=== PATIENT | female | born 2000 | race Caucasian/White ===

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

== ENCOUNTER 2024-10-23 10:24 | Outpatient (CLI) | payer OTHER, SELFPAY ==
--- NOTE | ~2024-10-23 | XR_ITS ---
Lumbosacral Spine: AP and lateral views Clinical History: Pain Findings: The normal lordotic curve is maintained. Suspected bilateral L5 pars interarticularis defec ts, without subluxation. The intervertebral disc spaces are preserved. The sacroiliac joints are no rmally outlined. Impression: Possible bilateral L5 pars interarticularis defects. No subluxation. Reviewed, dictated and finalized at [facility]. Impression: Possible bilateral L5 pars interarticularis defects. No subluxation.
--- NOTE | ~2024-10-23 | XR_ITS ---
Thoracic spine: Clinical Indication: Back pain AP and lateral views were performed. No fracture is seen. There is normal alignment of the vertebrae. The intervertebral disc spaces appe ar normal. Paravertebral soft tissues appear normal. Impression: No significant abnormalities noted. Reviewed, dictated and finalized at [facility]. Impression: No significant abnormalities noted.
--- NOTE | ~2024-10-23 | XR_ITS ---
Cervical Spine: AP, lateral, open-mouth views Clinical History: Pain Findings: The normal lordotic curve is maintained. The vertebral bodies and posterior elements appea r intact. The intervertebral disc spaces are well maintained. Pre-vertebral soft tissues are unremar kable. Impression: No significant abnormality is seen. Reviewed, dictated and finalized at [facility]. Impression: No significant abnormality is seen.
== END 2024-10-23 10:25 | disposition home or self-care (01) ==
DX: M54.6 Pain in thoracic spine (principal); M54.2 Cervicalgia
CPT/HCPCS: 72040; 72070; 72100

== ENCOUNTER 2024-11-06 01:04 | Day surgery (SDC) | payer OTHER, SELFPAY ==
[2024-11-02 13:41] VITALS: BMI 21.7
--- NOTE | 2024-11-02 13:53 | PC.NURSE ---
Report to the Outpatient Waiting Room, entrance under the green pavilion located off [facility], at time _1130_ on date _[id number]_. Planned Procedure Time: _130pm_.? Time changes happen often and if your time is changed the preop area will call you the afternoon before. - You and your visitor will be asked to self-screen and do not enter if you have any COVID symptoms. Please call surgeon if you need to reschedule. - A mask is optional within the hospital at this time. Patients may have clear liquids (water, carbonated beverages, clear teas, apple juice) until 3 hours prior to surgery with a maximum of 20 ounces. - No food from midnight until time of surgery and no smoking, or chewing tobacco (or any form of nicotine). No chewing gum, candy or mints. Take only the following medications with a SIP of water on the morning of surgery: __None DO NOT STOP ANY OF YOUR OTHER PRESCRIPTION MEDICATIONS PRIOR TO SURGERY EXCEPT THE FOLLOWING Hold all vitamins and supplements for 3 days per anesthesiologist. Medications to discontinue per physician Follow Dr Murali Munoz's instructions about Ibuprofen and Hydroxycloroquin. Date to take last xpag___[id number]___ Please no make-up, nail palauan, hairspray, perfume, deodorant, or body powder the day of surgery.? No jewelry (including any body piercings) or valuables the day of surgery, leave them at home.? Please take a shower or bath the night before, or the morning of, surgery with an antibacterial soap.? Wear comfortable, loose fitting clothing.? - Jewelry must be removed prior to entering the operating room.? Rings and piercings that are not removed may be cut off. - The hospital will not accept responsibility for valuables.? - Please leave all valuables, including medications, at home the day of surgery. If you are going home after surgery, a licensed furniture mover driver must drive you home.? - NO public transportation without another adult if you receive anesthesia. - We recommend that an adult stay with you for 24 hours following discharge. - We also recommend that you do not drive, make important decision, drink alcoholic beverages, or take any drugs that were not prescribed by your health care provider for at least 24 hours after your discharge time. Follow any additional instructions given to you from your surgeon. Telephone instructions given to __Sachi___and asked if any additional questions and then verbalized understanding. Patient advised to call surgeon office or pre surgery nurse liaison [phone] if any additional questions.
--- NOTE | 2024-11-03 07:29 | PM.IMHP ---
H&P: HPI History of Present Illness Date/Time: 11/03/24 07:29 Chief Complaint: Enlarged labia Narrative: This is a 24-year-old female 0 admitted for left labioplasty secondary to long enlarged labia. The patient has previously had a right labial repair for discomfort. She works out suffers from lupus. In light of this elongated labia she will undergo reduction labioplasty. She understands that this is not a cosmetic procedure min to simply improve the discomfort from enlarged labia. Risk of infection and pelvic pain and pain with intercourse later were reviewed. She had all questions answered and asked to proceed Review of Systems Review of Systems: CONSTITUTIONAL: Denies body aches, fever, chills, or sweats. EYES: Denies visual changes, redness, or discharge. ENT: Denies rhinorrhea, or otalgia. + Congestion, sore throat CARDIOVASCULAR: Denies chest pain, palpitations, or edema. RESPIRATORY: + Cough, chest tightness GASTROINTESTINAL: Denies abdominal pain, nausea, vomiting, or diarrhea. GENITOURINARY: Denies dysuria or hematuria. SKIN: Denies rash, itching, or wounds. MUSCULOSKELETAL: Denies back pain, joint pain, or myalgia. NEUROLOGIC: Denies headache, numbness, tingling, or weakness. PSYCH: Denies depression or anxiety. [facility] Past Medical History Medical History Eosinophilic esophagitis Asthma Surgical History Surgical History History of endoscopy Social History Social History Smoking status: Never smoker Living arrangements: with family Spiritual care concerns: No Meds Home Medications and Allergies Home Medications ?Medication ?Instructions ?Recorded ?Confirmed ?Type cholecalciferol (vitamin D3) 125 5,000 unit PO DAILY 11/02/24 11/02/24 History mcg (5,000 unit) tablet (Vitamin D3) cyanocobalamin (vitamin B-12) 5,000 mcg sublingual DAILY 11/02/24 11/02/24 History 5,000 mcg sublingual tablet (Vitamin B-12) fluticasone propionate 50 1 spray intranasal HS 11/02/24 11/02/24 History mcg/actuation nasal spray,suspension hydroxychloroquine 200 mg tablet 200 mg PO HS 11/02/24 11/02/24 History ibuprofen 200 mg tablet (Advil) 400 mg PO Q6H PRN pain 11/02/24 11/02/24 History magnesium 200 mg tablet 200 mg PO DAILY 11/02/24 11/02/24 History magnesium glycinate 100 mg (as 400 mg PO DAILY 11/02/24 11/02/24 History glycinate) tablet (Mag Glycinate) riboflavin (vitamin B2) 50 mg 400 mg PO DAILY 11/02/24 11/02/24 History tablet (Vitamin B-2) Allergies Allergy/AdvReac Type Severity Reaction Status Date / Time No Known Allergies Allergy Verified 11/02/24 13:33 Exam Const: General: cooperative, healthy appearing and comfortable Nutritional Appearance: average body habitus Orientation/consciousness: oriented to person, oriented to place and oriented to time HENMT: Head: normal to inspection Resp: Effort & Inspection: normal respiratory effort Cardio: Rate: regular rate Rhythm: regular rhythm Heart sounds: S1 normal heart sound present and S2 normal heart sound present GI: Inspection: normal to inspection : External Female Exam: normal external appearance (Left labia enlarged and elongated) Speculum Exam - Cervix: normal appearance of the cervix Bimanual exam- vagina & uterus: normal bimanual exam Assessment and Plan Assessment and plan (1) Labia enlarged: Code(s): N90.60 - Unspecified hypertrophy of vulva Status: Acute Plan Proceed with reduction left labioplasty
[2024-11-06] VITALS (9 sets, daily range): BP systolic 102–129; BP diastolic 61–92; PULSE 69–151; RESP 12–24; TEMP 36.1–37.2; O2SAT 94–100
--- OUTSIDE RECORDS SUMMARY | 2024-11-06 01:07 | XMS_ITS | Clinical Summary ---
Author Organization [facility] Address [address] Hoffn: Epic Prelude ADT ALEX OLIVO [address] Care Team Providers Care Drug Safety Specialist Name Role Phone Unavailable Primary Care Provider Unavailabl e Medications pantoprazole (PROTONIX) 20 mg Tablet, Delayed Release (E.C.) Take 1 Tablet (20 mg) by mouth daily. 90 Tablet 07/20/2022 3:45 PM CONDENSER SETTER 07/19/2022 Active pantoprazole (PROTONIX) 20 mg Tablet, Delayed Release (E.C.) Take 1 Tablet (20 mg) by mouth daily. 90 Tablet 12/25/2023 3:04 PM CDT 12/23/2023 Active Social History Tobacco Use Types Packs/Day Years Used Date Smoking Tobacco: Never Assessed Comments Unknown Sex and Gender Information Value Date Recorded Sex Assigned at Not on file Legal Sex Female 3:27 PM CDT Gender Identity Not on file Sexual Orientation Not on file Plan of Treatment Health Maintenance Due Date Last Done Comments CHLAMYDIA SCREENING (ANNUAL) 11-24 YEARS 2012 HPV VACCINES (1 - 3-dose series) 2016 DTAP/TDAP/TD VACCINES (1 - Tdap) 2020 HEPATITIS B VACCINES (1 of 3 - 19+ 3-dose series) 07/04 CERVICAL CANCER SCREENING 2022 HPV/Cotest (21-29) 2022 PAP SMEAR 2022 INFLUENZA VACCINE (#1) 2024 Insurance RX [facility] [employer] [place] [employer] ([employer]) [facility]
--- OUTSIDE RECORDS SUMMARY | 2024-11-06 01:07 | XMS_ITS | Clinical Summary ---
Author Organization [facility] Address [address] [place] [address] Care Team Providers Care Hand Candy Molder Name Role Phone Sameera Ramos MD Primary Care Provider + Allergies Active Allergy Reactions Criticality Noted Date Comments Cat Dander Hives Medium 12/31/2017 Dog Dander Rash Medium 12/31/2017 Other Hives Medium 02/28/2018 [place], tree, ragweed, mold, horses Jkvswxpkrv-Kfmts-Exagz-Con g Rash Medium 11/11/2018 Medications fluticasone (FLONASE) 50 mcg/actuation nasal spray 8 Active azelastine (ASTELIN) 137 mcg (0.1 %) nasal spray 8 Active loratadine (CLARITIN ORAL) Take by mouth as needed. Active SUDAFED SINUS 12HR PRESSR-PAIN 220-120 mg tablet extended release 12 hr TAKE 1 TABLET BY MOUTH EVERY 12 HOURS NEEDED FOR CONGESTION 3 9 Active cetirizine (ZyrTEC) 10 mg tablet Take 10 mg by mouth daily Active omeprazole (PriLOSEC) 20 mg capsuleIndicatio ns:Eosinophilic esophagitis Take 1 capsule (20 mg total) by mouth daily 90 capsule 3 0 Active Active Problems Problem Noted Date Diagnosed Date Seasonal allergic rhinitis due to pollen 018 Seasonal allergic rhinitis due to fungal spores 04/08/2018 Allergic rhinitis due to animals 04/08/2018 Eosinophilic esophagitis 03/30/2018 Dysphagia 02/27/2018 Overview (02/27/2018): Added automatically from request for surgery [id number] Esophageal dysphagia 01/24/2018 Benign neoplasm of soft tissues 11/22/2016 Hypertrophy of vulva 03/26/2014 Resolved Problems Problem Noted Date Diagnosed Date Resolved Date Chronic GERD 01/24/2018 11/07/2018 Irritation of vulva 03/26/2014 02/28/20 18 Immunizations Immunization Administration Dates Next Due DTaP 11/26/2002, 2,2001,09/18 DTaP, Unspecified 09/16/2006 H1N1 Nasal 05/03/2009,04/05/2009 HPV9 12/14/2016,06/19/2016 Hep A, Unspecified 06/25/2012,05/23/2011 Hep B, Adolescent or Pediatric 07/23/2002,2001,2001 HiB 07/23/2002,2001,2001 IPV 01/15/2002,2001,2001 Influenza, Quadrivalent, Spl it, Preservative Free, Intramuscular 03/17/2019 Influenza, Unspecified 03/21/2009,05/22/2007,02/2007 MMR 07/23/2002 MMRV 09/06/2006 Meningococcal B, OMV (Bexsero) 12/18/2017 Meningococcal Conjugate (Menveo) 12/18/2017 Meningococcal MCV4P (Menactra) 09/02/2013 Pneumococcal Conjugate 7-Valent 07/23/19 03,01/15/2002,2001,09/18 Polio, Unspecified 09/06/2006 Tdap 06/25/2012 Varicella 07/23/2002 Surgical History Surgery Date Site/Laterality Comments VULVA SURGERY 05/11/2014 Right MOLE REMOVAL back of head UPPER GASTROINTESTINAL ENDOSCOPY 03/06/2018 Medical History Medical History Date Comments Esophageal dysphagia 01/24/2018 Dysphagia 02/27/2018 Added automatica lly from request for surgery [id number] Chronic GERD 01/24/2018 Irritation of vulva 03/26/2014 Eosinophilic esophagitis 03/30/2018 Allergic rhinitis Family History Medical History Relation Name Comments Allergic rhinitis Father Anesthesia problems Father Hypertension Maternal Grandmother Family history of hypertension - (Added by TW Conv) Allergic rhinitis Mother Relation Name Status Comments Father Alive Maternal Grandmother Mother Alive Social History Tobacco Use Types Packs/Day Years Used Date Smoking Tobacco: Never Smokeless Tobacco: Never Alcohol Use Standard Drinks/Week Comments Never 0 (1 standard drink = 0.6 oz pur e alcohol) AUDIT-C Answer Date Recorded Frequency of Alcohol Consumption Never 05/29/2019 Average Number of Drinks Not on file 019 Frequency of Binge Drinking Not on file 05/04 Comments Unknown Sex and Gender Information Value Date Recorded Sex Assigned at Not on file Legal Sex Female 11:08 AM MAIL CLERKS SUPERVISOR Gender Identity Not on file Sexual Orientation Not on file History Length Weight Head Circum Date/Time Gestation Age D/C Weight APGARs Delivery Method Feeding 2000 7#12oz, term, no complicatio ns. Solely breastfed for 24+ months Obstetrics History Last Filed Vital Signs Vital Sign Reading Time Taken Comments Blood Pressure 110/76 12/26/2020 9:32 AM CDT Pulse 72 12/26/2020 9:32 AM CDT Temperature 36.9 C (98.5 F) 07/27/2019 3:12 PM MAIL CLERKS SUPERVISOR Respiratory Rate 18 07/27/2019 3:12 PM MAIL CLERKS SUPERVISOR Oxygen Saturation 98% 06/12/2019 3:31 PM MAIL CLERKS SUPERVISOR Inhaled Oxygen Concentration - - Weight 68.9 kg (152 lb) 12/26/2020 9:32 AM CDT Height 162.6 cm (5' 4) 12/26/2020 9:32 AM CDT Body Mass Index 26.09 12/26/2020 9:32 AM CDT Plan of Treatment Not on file Insurance [facility] [employer] [facility] HMO [facility] [employer] [facility] Care Teams Hand Candy Molder Relationship Specialty Start Date End Date Sameera Ramos MD [address] [place] [address] PCP - General 11/22/16
--- OUTSIDE RECORDS SUMMARY | 2024-11-06 01:07 | XMS_ITS | Referral Summary ---
Author Organization [facility] Address [address] [place] [address] Care Team Providers Care Biomedical Engineering Director Name Role Phone Sameera Ramos MD Primary Care Provider + Allergies Active Allergy Reactions Criticality Noted Date Comments Cat Dander Hives Medium 12/31/2017 Dog Dander Rash Medium 12/31/2017 Other Hives Medium 02/28/2018 [place], tree, ragweed, mold, horses Dauryhkjzs-Ubpoj-Rkcka-Con g Rash Medium 11/11/2018 Medications fluticasone (FLONASE) [...] (02/27/2018): Added automatically from request for surgery [id number] Esophageal dysphagia 01/24/2018 Benign neoplasm of soft [...] Polio, Unspecified 09/06/2006 Tdap 06/25/2012 Varicella 07/23/2002 Social History Tobacco Use Types Packs/Day Years [...] on file Legal Sex Female 11:08 AM [employer] INTELLIGENCE SUPPORT Gender Identity Not on file Sexual Orientation Not on file Last Filed Vital Signs Vital Sign Reading Time Taken Comments Blood Pressure 110/76 12/26/2020 9:32 AM CDT Pulse 72 12/26/2020 9:32 AM CDT Temperature 36.9 C (98.5 F) 07/27/2019 3:12 PM GW[employer]TELL[employer] SUPPORT Respiratory Rate 18 07/27/2019 3:12 PM GW[employer] INTELLIGENCE SUPPORT Oxygen Saturation 98% 06/12/2019 3:31 PM GW[employer]TELL[employer] SUPPORT Inhaled Oxygen Concentration - - Weight 68.9 kg (152 lb) 12/26/2020 9:32 AM CDT Height 162.6 cm (5' 4) 12/26/2020 9:32 AM CDT Body Mass Index 26.09 12/26/2020 9:32 AM CDT Plan of Treatment Not on file Insurance [facility] [place] [address] [place] [address] HMO [facility] [address] Care Teams Biomedical Engineering Director Relationship Specialty Start Date End Date Sameera Ramos MD [address] [place] [address] PCP - General 11/22/16
--- NOTE | 2024-11-06 03:46 | WPDHPUPDATE1 ---
History and Physical Update Update Date/Time: 11/06/24 03:46 History and Physical has been reviewed, including an updated exam of the patient. There are NO changes in the patient's condition. Risks, benefits, and alternatives have been discussed and questions answered. Patient agrees to proceed with procedure.
[2024-11-06 11:59] LABS: BEDSIDEPREGUCG Negative (Negative)
[2024-11-06] MEDS: LACTATED RINGERS 1,000 ML 30 ML IV CONT ×2 (12:05→13:39)
[2024-11-06] MEDS: SCOPOLAMINE 1 MG PATCH 1 PATCH TRANSDERM (12:10)
--- NOTE | 2024-11-06 12:20 | WPDANESEPPF ---
Anes - Initial Pre Proc Eval Procedure: Operation Date: 11/06/24 13:30 Proposed Procedures p Left Labiaplasty - Niko Munoz MD Date/Time: 11/06/24 12:20 Surgeon: Niko Munoz MD Pre Op Diagnosis: pain, enlarged labia Patient Data Age: 24 Gender: F Height: 1.63 m Weight: 54.14 kg Last Vital Signs Temp 37.2 C 11/06/24 11:59 Pulse 80 11/06/24 11:59 Resp 16 11/06/24 11:59 BP 120/83 11/06/24 11:59 Pulse Ox 100 11/06/24 11:59 O2 Del Method Room Air 11/06/24 11:59 Allergies Allergy/AdvReac Type Severity Reaction Status Date / Time No Known Allergies Allergy Verified 11/02/24 13:33 Home Medications ?Medication ?Instructions ?Recorded ?Confirmed ?Type cholecalciferol (vitamin D3) 125 5,000 unit PO DAILY 11/02/24 11/06/24 History mcg (5,000 unit) tablet (Vitamin D3) cyanocobalamin (vitamin B-12) 5,000 mcg sublingual DAILY 11/02/24 11/06/24 History 5,000 mcg sublingual tablet (Vitamin B-12) fluticasone propionate 50 1 spray intranasal HS 11/02/24 11/06/24 History mcg/actuation nasal spray,suspension hydroxychloroquine 200 mg tablet 200 mg PO HS 11/02/24 11/06/24 History ibuprofen 200 mg tablet (Advil) 400 mg PO Q6H PRN pain 11/02/24 11/02/24 History magnesium 200 mg tablet 200 mg PO DAILY 11/02/24 11/06/24 History magnesium glycinate 100 mg (as 400 mg PO DAILY 11/02/24 11/06/24 History glycinate) tablet (Mag Glycinate) riboflavin (vitamin B2) 50 mg 400 mg PO DAILY 11/02/24 11/06/24 History tablet (Vitamin B-2) hydrocodone 5 mg-acetaminophen 325 1 tablet PO Q4H PRN pain #30 tabs 11/06/24 Rx mg tablet Laboratory Tests 11/06/24 11:58 POC Urine HCG, Qual Negative (Negative) Patient hx anesthesia problems: none Family hx anesthesia problems: none Results Review: All pre-operative results and documents have been reviewed as part of the pre-operative evaluation. [facility] Past Medical History Medical History (Updated 11/06/24 @ 12:21 by Niko Lamar MD) SLE (systemic lupus erythematosus) Eosinophilic esophagitis Asthma Surgical History Surgical History History of endoscopy Social History Social History Smoking status: Never smoker Living arrangements: with family Spiritual care concerns: No Anes - Eval Final PreProcedure Day of Procedure 11/06/24 12:20 Patient weight: normal Heart: regular rate and rhythm Lungs: clear to auscultation Airway: Mallampati scale class II Neurological: alert and oriented Last oral intake: >/= 8 hours ASA classification: II Emergent: no Anesthesia type and monitoring: general LMA and standard monitoring Results Review: All pre-operative results and documents have been reviewed as part of the pre-operative evaluation. Informed Consent: The patient's anesthetic plan and its attendant risks and benefits were discussed with the patient/family/POA. Questions were solicited and answers provided to the satisfaction of the patient/family/POA.
[2024-11-06] MEDS: ceFAZolin 2 GM/D5W 50 ML 2 GM/50 ML BAG IVPB (13:04)
--- NOTE | 2024-11-06 13:35 | W.PM.PROC2 ---
Procedure Note - Detailed Date of Procedure 11/06/24 Pre-op Diagnosis pain, enlarged labia Post-op Diagnosis Same Procedure Performed Left labial majora reduction Surgeon Niko Munoz MD Anesthesia General Indications 24-year-old female with a long gated labia on the left and previous right labioplasty elsewhere Findings Elongated left labia majora Description of Procedure Patient was prepped draped in the normal sterile fashion placed in dorsal position. Excellent general endotracheal anesthesia the left labia was grasped and incision made along the in linear fashion reducing the labia to the size of the opposite labia minora. This was closed with running 4-0 Monocryl blood loss was 5cc. The patient was awakened went recovery in satisfactory condition. All sponge, needle, instrument counts were correct. There were no immediate complications Estimated Blood Loss 5 Drains No Packing No Pathology Yes Complications No immediate complications Condition Stable Disposition PACU
[2024-11-06] MEDS: fentaNYL CITRATE INJ (*CRX) 100 MCG/2 ML VIAL 25 MCG IV PUSH ×5 (13:55→14:35)
[2024-11-06] MEDS: oxyCODONE (*CRX) 5 MG/5 ML ORAL SOLN IR PO (15:20)
== END 2024-11-06 15:50 | disposition home or self-care (01) ==
PROVIDERS: Visit Provider Obstetrics & Gynecology
PROC: (CPT 56620; principal; 2024-11-06 13:30)
DX: N90.60 Unspecified hypertrophy of vulva (principal)
CPT/HCPCS: 56620; A9270; J0690; J1100; J1200; J2003; J2004; J2250; J2405; J2704; J3010; J7120

== ENCOUNTER 2024-12-03 01:46 | Day surgery (SDC) | payer OTHER, SELFPAY ==
--- NOTE | 2024-11-30 14:18 | PC.NURSE ---
Report to the Outpatient Waiting Room, entrance under the green pavilion located off [facility], at time _0700_ on date _[id number]_. Planned Procedure Time: _0900_.? Time changes happen often and if your time is changed the preop area will call you the afternoon before. - You and your visitor will be asked to self-screen and do not enter if you have any COVID symptoms. Please call surgeon if you need to reschedule. - A mask is optional within the hospital at this time. Patients may have clear liquids (water, carbonated beverages, clear teas, apple juice) until 3 hours prior to surgery with a maximum of 20 ounces. - No food from midnight until time of surgery and no smoking, or chewing tobacco (or any form of nicotine). No chewing gum, candy or mints. Take only the following medications with a SIP of water on the morning of surgery: ___None___ DO NOT STOP ANY OF YOUR OTHER PRESCRIPTION MEDICATIONS PRIOR TO SURGERY EXCEPT THE FOLLOWING Hold all vitamins and supplements for 3 days per anesthesiologist. Stop now. Medications to discontinue per physician Date to take last dose Please no make-up, nail vatican citizen, hairspray, perfume, deodorant, or body powder the day of surgery.? No jewelry (including any body piercings) or valuables the day of surgery, leave them at home.? Please take a shower or bath the night before, or the morning of, surgery with an antibacterial soap.? Wear comfortable, loose fitting clothing.? - Jewelry must be removed prior to entering the operating room.? Rings and piercings that are not removed may be cut off. - The hospital will not accept responsibility for valuables.? - Please leave all valuables, including medications, at home the day of surgery. If you are going home after surgery, a licensed mobile lounge driver must drive you home.? - NO public transportation without another adult if you receive anesthesia. - We recommend that an adult stay with you for 24 hours following discharge. - We also recommend that you do not drive, make important decision, drink alcoholic beverages, or take any drugs that were not prescribed by your health care provider for at least 24 hours after your discharge time. Follow any additional instructions given to you from your surgeon. Telephone instructions given to __Sachi and her mom Haydee___and asked if any additional questions and then verbalized understanding. Patient advised to call surgeon office or pre surgery nurse liaison [phone] if any additional questions.
[2024-11-30 14:24] VITALS: BMI 20.4
--- NOTE | 2024-12-01 06:48 | PM.IMHP ---
H&P: HPI History of Present Illness Date/Time: 12/01/24 06:48 Chief Complaint: Right labial large amount Narrative: 24-year-old female admitted for right labial reduction. She had left labial reduction and still feels there is a little bit of enlargement on the right she understands this is not a cosmetic procedure is being done because this is causing irritation and discomfort the risk of future sexual discomfort was reviewed. She had all questions answered and asked to proceed Review of Systems Review of Systems: CONSTITUTIONAL: Denies body aches, fever, chills, or sweats. EYES: Denies visual changes, redness, or discharge. ENT: Denies rhinorrhea, or otalgia. + Congestion, sore throat CARDIOVASCULAR: Denies chest pain, palpitations, or edema. RESPIRATORY: + Cough, chest tightness GASTROINTESTINAL: Denies abdominal pain, nausea, vomiting, or diarrhea. GENITOURINARY: Denies dysuria or hematuria. SKIN: Denies rash, itching, or wounds. MUSCULOSKELETAL: Denies back pain, joint pain, or myalgia. NEUROLOGIC: Denies headache, numbness, tingling, or weakness. PSYCH: Denies depression or anxiety. [facility] Past Medical History Medical History SLE (systemic lupus erythematosus) Eosinophilic esophagitis Asthma Surgical History Surgical History History of endoscopy Social History Social History Smoking status: Never smoker Living arrangements: with family Spiritual care concerns: No Meds Home Medications and Allergies Home Medications ?Medication ?Instructions ?Recorded ?Confirmed ?Type cholecalciferol (vitamin D3) 125 5,000 unit PO DAILY 11/02/24 11/30/24 History mcg (5,000 unit) tablet (Vitamin D3) cyanocobalamin (vitamin B-12) 5,000 mcg sublingual DAILY 11/02/24 11/30/24 History 5,000 mcg sublingual tablet (Vitamin B-12) fluticasone propionate 50 1 spray intranasal HS 11/02/24 11/30/24 History mcg/actuation nasal spray,suspension hydroxychloroquine 200 mg tablet 200 mg PO HS 11/02/24 11/30/24 History ibuprofen 200 mg tablet (Advil) 400 mg PO Q6H PRN pain 11/02/24 11/30/24 History magnesium 200 mg tablet 200 mg PO DAILY 11/02/24 11/30/24 History magnesium glycinate 100 mg (as 400 mg PO DAILY 11/02/24 11/30/24 History glycinate) tablet (Mag Glycinate) riboflavin (vitamin B2) 50 mg 400 mg PO DAILY 11/02/24 11/30/24 History tablet (Vitamin B-2) hydrocodone 5 mg-acetaminophen 325 1 tablet PO Q4H PRN pain #30 tabs 11/06/24 11/30/24 Rx mg tablet Allergies Allergy/AdvReac Type Severity Reaction Status Date / Time No Known Allergies Allergy Verified 11/30/24 14:22 Exam Const: General: cooperative, healthy appearing and comfortable Nutritional Appearance: average body habitus Orientation/consciousness: oriented to person, oriented to place and oriented to time HENMT: Head: normal to inspection Resp: Effort & Inspection: normal respiratory effort Cardio: Rate: regular rate Rhythm: regular rhythm Heart sounds: S1 normal heart sound present and S2 normal heart sound present GI: Inspection: normal to inspection : External Female Exam: normal external appearance (Right labia majora mildly enlarged and inflamed) Speculum Exam - Vagina: normal appearance of the vagina Speculum Exam - Cervix: normal appearance of the cervix Bimanual exam- vagina & uterus: soft Bimanual Exam- Adnexa, other: normal adnexae Assessment and Plan Assessment and plan (1) Labia enlarged: Code(s): N90.60 - Unspecified hypertrophy of vulva Status: Acute Plan Will proceed with right labial reduction
[2024-12-03] VITALS (8 sets, daily range): BP systolic 96–125; BP diastolic 63–93; PULSE 59–73; RESP 12–16; TEMP 36.2–36.4; O2SAT 99–100
--- OUTSIDE RECORDS SUMMARY | 2024-12-03 01:48 | XMS_ITS | Referral Summary ---
Author Organization [facility] Address [address] [place] [address] Care Team Providers Care Deck Supervisor Name Role Phone Sameera Ramos MD Primary Care Provider + Allergies Active Allergy Reactions Criticality Noted Date Comments Cat Dander Hives Medium 12/31/2017 Dog Dander Rash Medium 12/31/2017 Other Hives Medium 02/28/2018 [place], tree, ragweed, mold, horses Rzdeahgqvb-Flqqs-Tcmbw-Con g Rash Medium 11/11/2018 Medications fluticasone (FLONASE) [...] (02/27/2018): Added automatically from request for surgery [id number] Esophageal dysphagia 01/24/2018 Benign neoplasm of soft [...] on file 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 Gender Identity Not on file Sexual Orientation Not on file Last Filed Vital Signs Vital Sign Reading Time Taken Comments Blood Pressure 110/76 12/26/2020 9:32 AM CDT Pulse 72 12/26/2020 9:32 AM CDT Temperature 36.9 C (98.5 F) 07/27/2019 3:12 PM ENGINEER DES[employer] AND CONSTRUCTION Respiratory Rate 18 07/27/2019 3:12 PM ENGINEER DESIGN AND CONSTRUCTION Oxygen Saturation 98% 06/12/2019 3:31 PM ENGINEER [employer] CONSTRUCTION Inhaled Oxygen Concentration - - Weight 68.9 kg (152 lb) 12/26/2020 9:32 AM CDT Height 162.6 cm (5' 4) 12/26/2020 9:32 AM CDT Body Mass Index 26.09 12/26/2020 9:32 AM CDT Plan of Treatment Not on file Insurance [facility] [place] [place] [address] HMO [facility] [address] Care Teams Deck Supervisor Relationship Specialty Start Date End Date Sameera Ramos MD [address] [place] [address] PCP - General 11/22/16
--- OUTSIDE RECORDS SUMMARY | 2024-12-03 01:48 | XMS_ITS | Continuity of Care Document ---
Author Organization [facility]. If a dditional information is needed, contact Health Information Management at [phone] Address [address] [place] [address] Phone Care Team Providers Care Cell Support Operator Name Role Phone Unavailable Unavailable Unavailable Unavailable Unavailable Unavailable Unavailable Unavailable Unavailable Problems Hypokalemia Onset:30-Sep-2021 Therese Guerrero DO Palpitations Onset:30-Sep-2021 Therese Guerrero DO Near syncope Onset:30-Sep-2021 Therese Guerrero DO Allergies and Adverse Reactions guaifenesin(Allergy) Onset: 30-Sep-2021 Reaction:UNKNOWN Social History Smoking Status Never smoked tobacco Recorded: 30-Sep-2021
--- OUTSIDE RECORDS SUMMARY | 2024-12-03 01:48 | XMS_ITS | Clinical Summary ---
Author Organization [facility] Address [address] [place] [address] Care Team Providers Care Hat Finisher Name Role Phone Sameera Ramos MD Primary Care Provider + Allergies Active Allergy Reactions Criticality Noted Date Comments Cat Dander Hives Medium 12/31/2017 Dog Dander Rash Medium 12/31/2017 Other Hives Medium 02/28/2018 [place], tree, ragweed, mold, horses Nwksspihyx-Buqcq-Favul-Con g Rash Medium 11/11/2018 Medications fluticasone (FLONASE) [...] (02/27/2018): Added automatically from request for surgery [id number] Esophageal dysphagia 01/24/2018 Benign neoplasm of soft [...] Added automatica lly from request for surgery [id number] Chronic GERD 01/24/2018 Irritation of vulva 03/26/2014 [...] on file 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 Gender Identity Not on file Sexual Orientation [...] 36.9 C (98.5 F) 07/27/2019 3:12 PM ACCOUNTS PAYABLE TECHNICIAN Respiratory Rate 18 07/27/2019 3:12 PM ACCOUNTS PAYABLE TECHNICIAN Oxygen Saturation 98% 06/12/2019 3:31 PM ACCOUNTS PAYABLE TECHNICIAN Inhaled Oxygen Concentration - - Weight 68.9 kg (152 lb) 12/26/2020 9:32 AM CDT Height 162.6 cm (5' 4) 12/26/2020 9:32 AM CDT Body Mass Index 26.09 12/26/2020 9:32 AM CDT Plan of Treatment Not on file Insurance [facility] [employer] [facility] HMO [facility] [employer] [facility] Care Teams Hat Finisher Relationship Specialty Start Date End Date Sameera Ramos MD [address] [place] [address] PCP - General 11/22/16
--- OUTSIDE RECORDS SUMMARY | 2024-12-03 01:48 | XMS_ITS | Clinical Summary ---
Author Organization [facility] Address [address] [place]n: Epic Prelude ADT [place] [address] Care Team Providers Care Instruction Assistant Principal Name Role Phone Unavailable Primary Care Provider Unavailabl e Medications pantoprazole (PROTONIX) 20 mg Tablet, Delayed Release (E.C.) Take 1 Tablet (20 mg) by mouth daily. 90 Tablet 07/20/2022 3:45 PM MILK TRUCK DRIVER 07/19/2022 Active pantoprazole (PROTONIX) 20 mg Tablet, [...] 2022 PAP SMEAR 2022 INFLUENZA VACCINE (#1) 2025 Insurance RX [facility] [employer] ([employer]) [facility]
--- OUTSIDE RECORDS SUMMARY | 2024-12-03 01:48 | XMS_ITS | Clinical Summary ---
Author Organization [facility] Address [address] [place] [id number] Care Team Providers Care Director Of Neighborhood Service Center Name Role Phone Sameera Ramos MD Primary Care Provider [phone] Allergies Active Allergy Reactions Criticality Noted Date Comments Dog Dander Rash Medium 12/31/2017 Medications No known medications Family History Medical History Relation Comments Heart Attack Paternal Grandfather Open Heart Paternal Grandfather Stent Cardiac Paternal Grandfather Relation Status Comments Brother 1 Alive Brother 2 Alive Father Alive Maternal Grandfather Alive Maternal Grandmother Alive Mother Alive Paternal Grandfather (Age 62) Paternal Grandmother Alive Sister 1 Alive Sister 2 Alive Social History Tobacco Use Types Packs/Day Years Used Date Smoking Tobacco: Never Smokeless Tobacco: Never Alcohol Use Standard Drinks/Week Comments Never 0 (1 standard drink = 0.6 oz pur e alcohol) Comments Unknown Sex and Gender Information Value Date Recorded Sex Assigned at Not on file Legal Sex Female 4:14 PM CDT Gender Identity Not on file Sexual Orientation Not on file Last Filed Vital Signs Vital Sign Reading Time Taken Comments Blood Pressure 120/82 10/17/2021 12:38 PM CDT Pulse 80 10/17/2021 12:38 PM CDT Temperature - - Respiratory Rate - - Oxygen Saturation 98% 10/17/2021 12:38 PM CDT Inhaled Oxygen Concentration - - Weight 72.6 kg (160 lb) 10/17/2021 12:38 PM CDT Height 162.6 cm (5' 4) 10/17/2021 12:38 PM CDT Body Mass Index 27.46 10/17/2021 12:38 PM CDT Plan of Treatment Health Maintenance Due Date Last Done Comments Cervical Cancer Screening Pap Smear (Age 21 to 29) Every 3 Years 2001 Cervical Cancer Screening 2001 Annual Physical 2004 Hepatitis C 2019 DTaP, Tdap and Td Vaccines (7 - Td or Tdap) 06/25/2022 06/25/2012, 09/16/2006, 11/26/2002, Additional history exists COVID-19 Vaccine (2023- season) 2024 Hepatitis B Vaccines Completed 07/23/2002, 2001, 2001 Pneumococcal Vaccine: Pediatrics (0 to 5 Years) and At-Risk Patients (6 to 49 Years) Aged Out 07/23/2002, 01/15/2002, 2001, Additional history exists No longer eligible based on patient's age to complete this topic HPV Vaccines Completed 12/14/2016, 06/19/2016 Meningococcal Vaccine Completed 12/18/2017, 014 Meningococcal B Vaccine Completed 12/25/2018, 12/18 RSV Immunizations Under 20 Months Aged Out No longer eligible based on patient's age to complete this topic Insurance [facility] Care Teams Director Of Neighborhood Service Center Relationship Specialty [place] [address] [place] [address] PCP - General PEDIATRICS 10/04/21
--- NOTE | 2024-12-03 06:27 | WPDHPUPDATE1 ---
History and Physical Update Update Date/Time: 12/03/24 06:27 History and Physical has been reviewed, including an updated exam of the patient. There are NO changes in the patient's condition. Risks, benefits, and alternatives have been discussed and questions answered. Patient agrees to proceed with procedure.
[2024-12-03] MEDS: LACTATED RINGERS 1,000 ML 30 ML IV CONT (07:35)
--- NOTE | 2024-12-03 07:51 | WPDANESEPPF ---
Anes - Initial Pre Proc Eval Procedure: Operation Date: 12/03/24 09:00 Proposed Procedures p Right Labiaplasty - Niko Munoz MD Date/Time: 12/03/24 07:51 Surgeon: Niko Munoz MD Pre Op Diagnosis: Hypertrophy Rt Labia Vulvodynia Patient Data Age: 24 Gender: F Height: 1.63 m Weight: 57.6 kg Last Vital Signs Temp 36.4 C 12/03/24 07:28 Pulse 73 12/03/24 07:28 Resp 16 12/03/24 07:28 BP 116/69 12/03/24 07:28 Pulse Ox 100 12/03/24 07:28 O2 Del Method Room Air 12/03/24 07:28 Allergies Allergy/AdvReac Type Severity Reaction Status Date / Time No Known Allergies Allergy Verified 12/03/24 07:25 Home Medications ?Medication ?Instructions ?Recorded ?Confirmed ?Type cholecalciferol (vitamin D3) 125 5,000 unit PO DAILY 11/02/24 12/03/24 History mcg (5,000 unit) tablet (Vitamin D3) cyanocobalamin (vitamin B-12) 5,000 mcg sublingual DAILY 11/02/24 12/03/24 History 5,000 mcg sublingual tablet (Vitamin B-12) fluticasone propionate 50 1 spray intranasal HS 11/02/24 12/03/24 History mcg/actuation nasal spray,suspension hydroxychloroquine 200 mg tablet 200 mg PO HS 11/02/24 12/03/24 History ibuprofen 200 mg tablet (Advil) 400 mg PO Q6H PRN pain 11/02/24 11/30/24 History magnesium 200 mg tablet 200 mg PO DAILY 11/02/24 12/03/24 History magnesium glycinate 100 mg (as 400 mg PO DAILY 11/02/24 12/03/24 History glycinate) tablet (Mag Glycinate) riboflavin (vitamin B2) 50 mg 400 mg PO DAILY 11/02/24 12/03/24 History tablet (Vitamin B-2) hydrocodone 5 mg-acetaminophen 325 1 tablet PO Q4H PRN pain #30 tabs 11/06/24 11/30/24 Rx mg tablet hydrocodone 5 mg-acetaminophen 325 1 tablet PO Q4H PRN pain #14 tabs 12/03/24 Rx mg tablet Patient hx anesthesia problems: none Family hx anesthesia problems: none Results Review: All pre-operative results and documents have been reviewed as part of the pre-operative evaluation. PENDING SALE TO [facility] Past Medical History Medical History SLE (systemic lupus erythematosus) Eosinophilic esophagitis Asthma Surgical History Surgical History History of endoscopy Social History Social History Smoking status: Never smoker Living arrangements: with family Spiritual care concerns: No Anes - Eval Final PreProcedure Day of Procedure 12/03/24 07:51 Patient weight: normal Heart: regular rate and rhythm Lungs: clear to auscultation Airway: Mallampati scale class II Neurological: alert and oriented Last oral intake: >/= 8 hours ASA classification: III Emergent: no Anesthetic plan: proceed Anesthesia type and monitoring: general LMA and standard monitoring Results Review: All pre-operative results and documents have been reviewed as part of the pre-operative evaluation. Informed Consent: The patient's anesthetic plan and its attendant risks and benefits were discussed with the patient/family/POA. Questions were solicited and answers provided to the satisfaction of the patient/family/POA.
--- NOTE | 2024-12-03 08:44 | WPDHPUPDATE1 ---
History and Physical Update Update Date/Time: 12/03/24 08:44 History and Physical has been reviewed, including an updated exam of the patient. There are NO changes in the patient's condition. Risks, benefits, and alternatives have been discussed and questions answered. Patient agrees to proceed with procedure. Discussed the possibility of slight change left labia as well she is agreeable
[2024-12-03] MEDS: SCOPOLAMINE 1 MG PATCH 1 PATCH TRANSDERM (08:45)
[2024-12-03 08:54] LABS: BEDSIDEPREGUCG Negative (Negative)
--- NOTE | 2024-12-03 09:15 | W.PM.PROC2 ---
Procedure Note - Detailed Date of Procedure 12/03/24 Pre-op Diagnosis Hypertrophy Rt Labia Vulvodynia Post-op Diagnosis Same Procedure Performed Right labioplasty Surgeon Niko Munoz MD Anesthesia General Indications 24-year-old patient with excessive labia on the right Findings Excessive labial tissue on the right Description of Procedure Patient was prepped draped in normal sterile fashion placed in the supine position under excellent general anesthesia the labia was grasped on the right and incision made to remove the excess tissue care was taken to avoid injury to the the Neer clitoral area. Once this was removed running 4-0 Monocryl was placed blood loss was 5cc all sponge, needle, instrument counts were correct. There were no complications she went to recovery in satisfactory condition Estimated Blood Loss 5 Drains No Packing No Pathology None sent Complications No immediate complications Condition Stable Disposition PACU
[2024-12-03] MEDS: oxyCODONE (*CRX) 5 MG/5 ML ORAL SOLN IR PO (10:40)
== END 2024-12-03 11:19 | disposition home or self-care (01) ==
PROVIDERS: Visit Provider Obstetrics & Gynecology
PROC: (CPT 56620; principal; 2024-12-03 09:00)
DX: N90.60 Unspecified hypertrophy of vulva (principal)
CPT/HCPCS: 56620; A9270; J1100; J2003; J2004; J2250; J2405; J2704; J3010; J7120

== ENCOUNTER 2024-12-31 12:07 | Outpatient (CLI) | payer OTHER, SELFPAY ==
--- NOTE | ~2024-12-31 | XR_ITS ---
Cervical Spine: AP, lateral, open-mouth views Clinical History: Pain Findings: The normal lordotic curve is maintained. The vertebral bodies and posterior elements appea r intact. No instability on flexion or extension. The intervertebral disc spaces are well maintained. Pre-vertebral soft tissues are unremarkable. Impression: No significant abnormality is seen. Reviewed, dictated and finalized at [facility]. Impression: No significant abnormality is seen.
--- NOTE | ~2024-12-31 | XR_ITS ---
Lumbosacral Spine: AP and lateral views Clinical History: Pain Findings: The normal lordotic curve is maintained. The vertebral bodies and posterior elements are i ntact. The intervertebral disc spaces are preserved. The sacroiliac joints are normally outlined. Impression: No significant abnormality. Reviewed, dictated and finalized at [facility]. Impression: No significant abnormality.
== END 2024-12-31 12:08 | disposition home or self-care (01) ==
PROVIDERS: Visit Provider Neurological Surgery
DX: M54.2 Cervicalgia (principal); M54.9 Dorsalgia, unspecified
CPT/HCPCS: 72050; 72110